=== PATIENT | female | born 1945 ===

== ENCOUNTER → 2017-08-12 | Day surgery (SDC) | payer MEDICARE ==
[~2017-08-12] VITALS: Ht 170.2 cm; Wt 63.1 kg
[~2017-08-12] MED LIST: 0.9% Sodium Chloride 1,000 ML IV PRN; ASPI-973 PO; ATRV10T PO; CHOL10008 PO; GLUC500T12 PO; LEVO50TA6 PO; LOSA50TA37 PO; Lactated Ringer's 1,000 ML IV ONE; Sodium Chloride LOK Flush 10 mL Syringe IV PRN; fentaNYL-PF 50 mCg/mL 2 mL Inj IVPUSH PRN
[2017-08-12 09:55] VITALS: BP 125/73; PULSE 63; RESP 12; O2SAT 98
[2017-08-12 10:57] VITALS: BP 104/56; PULSE 59; RESP 14; O2SAT 100
[2017-08-12 11:10] VITALS: BP 95/56; PULSE 67; RESP 16; O2SAT 100
[2017-08-12 11:19] VITALS: BP 120/75; PULSE 55; RESP 16; O2SAT 99
--- NOTE | 2017-08-12 11:44 | ENDO ---
[address] [address] ENDOSCOPY PROCEDURE PATIENT: MADDIE MANZANO : 1945 MR#: [id number] ADMIT: 08/12/2017 JOB ID: [id number] DATE: 08/12/2017 PRIMARY PROVIDER: Ginger Christianson PROCEDURE: Colonoscopy with biopsies and cold forceps polypectomy. INDICATIONS: A 71-year-old female with a change in bowel habit. She has intermittent loose stools of uncertain etiology. Colonoscopy is pursued. EQUIPMENT: [facility] SEDATION: 1. Versed 5 mg. 2. Fentanyl 100 mcg. COMPLICATIONS: None identified. BOWEL PREPARATION: Very adequate. PROCEDURE INFO: After the risks and benefits were explained, written and verbal informed consent was obtained. The patient was brought into the endoscopy suite and placed into the left lateral decubitus position. Sedation was achieved as above. A digital rectal examination was accomplished. Mild internal hemorrhoids noted. The scope was introduced into the rectum and advanced to the cecum as identified by the appendiceal orifice and ileocecal valve. The terminal ileum was briefly accessed. The scope then slowly withdrawn to carefully examine the mucosa for any defects or lesions. Multiple direct views were made through the dentate line for exclusion of pathology. The colon was decompressed. The scope removed from the patient who tolerated the procedure well. FINDINGS: There was a large greater than 2 cm irregular polyp in the sigmoid at approximately 12 cm from the anal verge. This could not be visualized from the vantage point of dentate line but was just beyond the rectosigmoid in distal sigmoid. It was on the backside of a fold. There was an approximately 2 cm polypoid component of this that was moderately firm under the forceps. This would have normally been able to be removed by way of a hot snare. However, the base was spreading out over the wall of the colon and perhaps involved almost half of the luminal circumference at this location. Because of the superficial spreading nature and large size I did not feel I could get this all out safely and completely. We therefore biopsied the location and placed a tattoo just adjacent to the spot for surgical identification. There was a diminutive polyp in the proximal sigmoid colon that was removed with cold forceps. The terminal ileum appeared normal. No signs of colitis or any other significant pathology throughout. ENDOSCOPIC DIAGNOSES: 1. Large distal sigmoid colon polyp. 2. Diminutive colon polyp. 3. Hemorrhoids. RECOMMENDATIONS: 1. Await histopathology. 2. Unfortunately I think this needs to come out surgically and I will refer to Surgery for further discussion here. 3. Certainly if there is any element of adenocarcinoma in situ then CEA level will be requested. I would leave abdominal imaging to the discretion of the surgery team. Cc: Ginger Christianson
--- NOTE | 2017-08-13 14:30 | PATH ---
SURGICAL PATHOLOGY Attending Physician:Herminio Young CASE STATUS: Signed Out PATIENT NAME: MADDIE MANZANO PID: [id number] : 1945 DATE COLLECTED:08/12/2017 21:29 SPECIMEN: 1: Colon, Polyp 2: Colon, Polyp CLINICAL HISTORY: 1). POLYP SIGMOID 2) RECTO-SIGMOID POLYP BIOPSY FINAL DIAGNOSIS: 1. Sigmoid Colon, Polyp, Biopsy: Tubular adenoma; negative for high-grade dysplasia. 2. Rectosigmoid Colon, Polyp, Biopsy: Portions of tubular adenoma; negative for high-grade dysplasia. ICD10: K63.5 GROSS DESCRIPTION: The specimen is received in two formalin filled containers labeled with the patient's name. 1). The specimen is labeled "sigmoid polyp" and consists of a 0.3 x 0.2 x 0.2 CM portion of tissue which is entirely submitted in cassette 1A. 2). The specimen is labeled "recto sig polyp" and consists of 3 portions of tissue and or debris which aggregate to 0.3 x 0.3 x 0.2 CM. The specimen is entirely submitted in cassette 2A. 08/12/2017DC ICD-9 CODES: CPT CODES: 1: 78669 2: 69094 Electronically Signed Out Zohra Ledezma MD [facility] [address], [place] [address] Technical component performed at [facility], [facility] [address], [place], [address]
== END | disposition home or self-care (01) ==
LOC: END 00:21
PROVIDERS: ATTEND Internal Medicine Gastroenterology
DX: D12.3 Benign neoplasm of transverse colon (principal); D12.7 Benign neoplasm of rectosigmoid junction; K64.8 Other hemorrhoids; R19.7 Diarrhea, unspecified; J45.990 Exercise induced bronchospasm; E78.5 Hyperlipidemia, unspecified; I10 Essential (primary) hypertension; E07.9 Disorder of thyroid, unspecified; Z79.82 Long term (current) use of aspirin; Z79.899 Other long term (current) drug therapy
CPT/HCPCS: 45380; 45381; 88305; 99153; G0500; J2250; J3010; J7030